=== PATIENT | female | born 1995 | race Caucasian/White ===

== ENCOUNTER 2017-11-02 08:52 | Emergency (ER) | payer BC ==
[2017-11-02 08:59] VITALS: BMI 30.7
--- NOTE | 2017-11-02 09:11 | PDOC ---
History of Present Illness - General Chief Complaint: Chest Pain Stated Complaint: CHEST PAIN Time Seen by Provider: 11/02/17 09:03 - History of Present Illness Initial Comments: 11/02/17 10:14 21 year old female with a PMH of gastric sleeve presents to ED c/o acute onset of chest pain. Patient states the pain started @ 3 a.m. this morning and woke her from sleep. Pain is substernal, "punching" 8/10 and radiates to her back B/ L. Endorses dyspnea, no nausea/palpitations/lightheadedness. Pain exacerbated by supine position, better with sitting. Patient denies any previous h/o such pain. Denies any recent trauma or recent travel. Patient's mother @ bedside notes family cardiac history including maternal CAD (s/p stents) and maternal uncle h/o CA @ age 33 prompting visit to the ED. At presentation patient SpO2 100% on RA, BP 129/84. PMD: [facility] Surgical: Gastric sleeve (November 2017) Social: denies cigarettes, denies alcohol, denies recreational drugs Past History - Past Medical History Allergies/Adverse Reactions: Allergies Allergy/AdvReac Type Severity Reaction Status Date / Time No Known Allergies Allergy Verified 11/02/17 08:56 Home Medications: Ambulatory Orders Cholecalciferol (Vitamin D3) [Vitamin D3 -] 1,000 unit PO DAILY 11/02/17 Multivitamins [Tab-A-Vit -] 1 tab PO DAILY 11/02/17 Norethindrone AC-Eth Estradiol [Microgestin 21 1-20 Tablet] 1 each PO DAILY 07/10 COPD: No - Surgical History Abdominal Surgery: Yes (bariatric sx 2017 [facility]) - Suicide/Smoking/Psychosocial Hx Smoking History: Never smoked Have you smoked in the past 12 months: No Information on smoking cessation initiated: No Hx Alcohol Use: No Drug/Substance Use Hx: No Substance Use Type: None Review of Systems - Review of Systems Constitutional: No: Chills, Fever HEENTM: No: Recent change in vision Respiratory: Yes: Shortness of Breath. No: Orthopnea Cardiac (ROS): Yes: Chest Pain. No: Lightheadedness, Palpitations, Syncope ABD/GI: No: Constipated, Diarrhea, Nausea, Vomiting : No: Burning, Dysuria *Physical Exam - Vital Signs Last Vital Signs Temp Pulse Resp BP Pulse Ox 98.2 F 75 18 139/75 100 11/02/17 08:56 11/02/17 08:56 11/02/17 08:56 11/02/17 08:56 11/02/17 08:56 - Physical Exam Comments: 11/02/17 17:49 GENERAL: Awake, alert, and fully oriented, in no acute distress HEAD: No signs of trauma EYES: PERRLA, EOMI, sclera anicteric, conjunctiva clear ENT: Auricles normal inspection, hearing grossly normal, nares patent, oropharynx clear without exudates. Moist mucosa NECK: Nontender, no stepoffs, Normal ROM, supple, no lymphadenopathy, JVD, or masses LUNGS: Breath sounds equal, clear to auscultation bilaterally. No wheezes, and no crackles HEART: Regular rate and rhythm, normal S1 and S2, no murmurs, rubs or gallops ABDOMEN: Soft, nontender, normoactive bowel sounds. No guarding, no rebound. No masses EXTREMITIES: Normal range of motion, no edema. No clubbing or cyanosis. No cords, erythema, or tenderness NEUROLOGICAL: Cranial nerves II through XII intact. 5/5 strength and sensation in all extremities, Normal speech, normal gait, normal cerebellar function SKIN: Warm, Dry, normal turgor, no rashes or lesions noted. ED Treatment Course - LABORATORY CBC & Chemistry Diagram: 11/02/17 09:55 11/02/17 09:55 Medical Decision Making - Medical Decision Making 11/02/17 09:48 21 year old female presents with acute onset of chest pain; Physical exam notable for reproducible substernal chest pain as well as epigastric TTP. Low clinical suspicion for ACS given reproducibility, more likely musculoskeletal. Will obtain basic labs to rule out active infection including possible cholecystitis, early appendicitis. GI cocktail for pain. Reassess. 11/02/17 11:18 EKG NSR HR 67, no deviations, normal axis, no TWI/KARMEN/STD, poor R wave progression -- no signs of acute ischemia on ECG. 11/02/17 11:30 CBC shows no leukocytosis, Urine negative, Troponin (-) x1. 11/02/17 11:34 Patient continues to c/o pain -- pain continues to be reproducible. Remains hemodynamically stable Will give Toradol. Reassess. 11/02/17 12:38 Patient's pain completely resolved with NSAID. Relief of pain with NSAID + negative Troponin, non-ischemic EKG. At this time patient has been evaluated for 3+ hours with complete resolution of chest pain. Suspect musculoskeletal etiology. Will discharge home with return precautions and PMD follow-up. I discussed the physical exam findings, ancillary test results and final diagnoses with the patient. I answered all of the patient's questions. The patient was satisfied with the care received and felt comfortable with the discharge plan and treatment plan. The patient will return to the Emergency Department with any new, persistent or worsening symptoms. *DC/Admit/Observation/Transfer Diagnosis at time of Disposition: Chest pain - Discharge Dispostion Disposition: HOME Condition at time of disposition: Good - Referrals - Patient Instructions Printed Discharge Instructions: DI for Atypical Chest Pain Additional Instructions: You were evaluated today for chest pain. Your labs and chest xray showed no concerning findings. Please follow up with your Primary Care Doctor in the next 2-3 days. Return to the Emergency Department for any new/worsening/concerning symptoms. - Post Discharge Activity Forms/Work/School Notes: Back to Work
--- NOTE | 2017-11-02 09:37 | PDOC ---
Attending Attestation - Resident Resident Name: Sarahy Ken - ED Attending Attestation I have performed the following: I have examined & evaluated the patient, The case was reviewed & discussed with the resident, I agree w/resident's findings & plan, Exceptions are as noted - HPI HPI: 11/02/17 09:47 21y F hx of gastric bypass 1 yr ago presents with complaint of chest pain since last night. Pt states she was completely fine last night and yesterday utntil about 3am, when she started to fee a sharp/severe mid lower chest pain that radiates up to her shoulders and to the upper back, lasted ~1.5 hrs after she took a motrin it completely resolved and recurred this morning when she woke up. She denies ever having this pain in the past before. 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 The pt denies any fever/chills, cough, hemoptysis, vomiting, akhtar, sob, diarrhea, dysuria, hematuria, vaginal complets. - Physicial Exam PE: 11/02/17 09:52 GENERAL: The patient is awake, alert, and fully oriented, Nontoxic - in no acute distress. HEAD: Normocephalic, atraumatic. EYES: extraocular movements intact, sclera anicteric, conjunctiva clear. ENT: Normal voice, Moist mucous membranes. NECK: Normal range of motion, supple LUNGS: Breath sounds equal, clear to auscultation bilaterally. No wheezes, no rhonchi, no rales. HEART: Regular rate and rhythm, normal S1 and S2 without murmur, rub or gallop. ABDOMEN: Soft, nontender, normoactive bowel sounds. No guarding, no rebound. neg murphies. No CVA tenderness EXTREMITIES: Normal range of motion, no edema. MSK: reproducible tenderness to b/l trapezius, and extension of UE reproduces the pain NEUROLOGICAL: No facial assymetry, Normal speech, PSYCH: Normal mood, normal affect. SKIN: Warm, Dry, normal turgor, - Medical Decision Making 11/02/17 09:52 ddx - msk, pancreatitis, gastritis will ck cxr, cbc, cmp, lipase will give gi coctail, tylenol for symptomatic releife will ck UA/uhcg will reassess 11/02/17 11:36 pts labs reviewed unremarkble cxr neg for acute finidings I suspect her pain is msk in nature -w ill give her some toradol and reassess Heart Score/ECG Review - ECG Impressions Comment:: 11/02/17 11:36 Twelve-lead EKG was performed and reviewed by me. There is normal sinus rhythm with a normal rate. Rate of 67 The axis is normal. The intervals are normal. There are no ST or T wave abnormalities.
[2017-11-02] MEDS ORDERED: MAG HYDROX/AL HYDROX/SIMETH -MYLANTA- ORAL SUSPENSION PO ONE (09:47)
[2017-11-02] MEDS ORDERED: ACETAMINOPHEN 325 MG TABLET (FP) PO ONE (09:47)
[2017-11-02] MEDS ORDERED: FAMOTIDINE 20 MG/50 ML IVPB 20 MG in PREMIX 50 IVPB ONE (09:47)
[2017-11-02] MEDS ORDERED: MAG HYDROX/AL HYDROX/SIMETH 30 ML UNIT-DOSE CUP ONE (10:05)
[2017-11-02] MEDS ORDERED: ACETAMINOPHEN 325 MG TABLET (FP) ONE (10:05)
[2017-11-02] MEDS ORDERED: FAMOTIDINE 20 MG/50 ML IVPB 20 MG/50 ML MG IVPB ONE (10:05)
[2017-11-02 10:21] LABS: BASO % 0.4 % (0-2.0); EOS % 0.5 % (0-4.5); HEMATOCRIT 39.4 % (32.4-45.2); HEMOGLOBIN 12.8 GM/dL (10.7-15.3); LYMPH % 26.6 % (8-40); MCH 26.1 pg (25.7-33.7); MCHC 32.4 g/dl (32.0-36.0); MEAN CELL VOLUME 80.4 fl (80-96); MEAN PLT VOLUME 8.6 fl (7.5-11.1); MONO % 5.2 % (3.8-10.2); NEUT % 67.3 % (42.8-82.8); PLATELET COUNT 220 K/MM3 (134-434); RDW 14.1 % (11.6-15.6); WHITE BLOOD COUNT 6.1 K/mm3 (4.0-10.0)
[2017-11-02 10:30] LABS: ALBUMIN 3.3 g/dl (3.4-5.0); ALK PHOS 80 U/L (45-117); ANION GAP 6 (8-16); BILIRUBIN,TOTAL 0.3 mg/dL (0.2-1.0); BLOOD UREA NITROGEN 12 mg/dL (7-18); CALCIUM 9.1 mg/dL (8.5-10.1); CHLORIDE 106 mmol/L (98-107); CO2 27 mmol/L (21-32); CREATININE 0.6 mg/dL (0.55-1.02); GLUCOSE,RANDOM 75 mg/dL (74-106); LIPASE 120 U/L (73-393); POTASSIUM 4.3 mmol/L (3.5-5.1); SGOT/AST 23 U/L (15-37); SGPT/ALT 30 U/L (12-78); SODIUM 139 mmol/L (136-145); TOT PROT 6.9 g/dl (6.4-8.2)
[2017-11-02 10:36] LABS: URINE APPEARANCE CLEAR; URINE BILIRUBIN NEGATIVE (<2.0 mg/dL); URINE BLOOD NEGATIVE (NEGATIVE); URINE COLOR YELLOW; URINE GLUCOSE (UA) NEGATIVE (NEGATIVE); URINE KETONE NEGATIVE (NEGATIVE); URINE LEUK ESTERASE NEGATIVE (NEGATIVE); URINE NITRITE NEGATIVE (NEGATIVE); URINE PROTEIN NEGATIVE (NEGATIVE)
[2017-11-02 10:37] LABS: HCG,QUALITATIVE URINE NEGATIVE
[2017-11-02] MEDS ORDERED: KETOROLAC TROMETHAMINE 30 MG/1 ML VIAL IVPUSH ONE (11:34)
[2017-11-02] MEDS ORDERED: KETOROLAC TROMETHAMINE 30 MG/1 ML VIAL ONE (11:59)
[2017-11-02 12:59] VITALS: BP 128/76; PULSE 68; TEMP 98.1
--- NOTE | 2017-11-02 13:29 | EKG ---
Test Reason : Blood Pressure : / mmHG Vent. Rate : 067 BPM Atrial Rate : 067 BPM P-R Int : 146 ms QRS Dur : 080 ms QT Int : 412 ms P-R-T Axes : 035 028 032 degrees QTc Int : 435 ms NORMAL SINUS RHYTHM NORMAL ECG NO PREVIOUS ECGS AVAILABLE Confirmed by MAEGAN DE LA FUENTE MD ([id number]) on 11/02/2017 1:28:41 PM Referred By: Confirmed By:MAEGAN DE LA FUENTE MD
== END 2017-11-02 12:59 | disposition home or self-care (01) ==
LOC: JER 08:52
PROC: 3E033GC Introduction of Other Therapeutic Substance into Peripheral Vein, Percutaneous Approach (ICD-10-PCS; principal; 2017-11-02)
PROC: 3E0333Z Introduction of Anti-inflammatory into Peripheral Vein, Percutaneous Approach (ICD-10-PCS; 2017-11-02)
DX: R07.89 Other chest pain (principal)
CPT/HCPCS: 36415; 71046-TC-FY; 80053; 81003; 82550; 83690; 84484; 84703; 85025; 87077; 87086; 93005; 93010; 99283-25

== ENCOUNTER 2019-01-04 00:21 | Emergency (ER) | payer BC | END 2019-01-04 02:46 | disposition home or self-care (01) | LOC: FER 00:21 ==

== ENCOUNTER 2019-01-10 17:10 | Emergency (ER) | payer BC ==
[2019-01-10 17:50] VITALS: BP 115/61; PULSE 64; TEMP 97.8; BMI 27.3
--- NOTE | 2019-01-10 17:53 | PDOC ---
Rapid Medical Evaluation Chief Complaint: Pain Time Seen by Provider: 01/10/19 17:48 Medical Evaluation: Allergies Allergy/AdvReac Type Severity Reaction Status Date / Time No Known Allergies Allergy Verified 11/02/17 08:56 01/10/19 17:48 I have performed a brief in-person evaluation of this patient. The patient presents with a chief complaint of: upper abd pain x 1 week, seen here then PMD last week Pertinent physical exam findings: + US showed Gallstones I have ordered the following: Labs/ US Gallbladder The patient will proceed to the ED for further evaluation. Discharge Disposition - Diagnosis Biliary colic - Referrals - Patient Instructions - Post Discharge Activity
== END 2019-01-10 19:57 | disposition left against medical advice (07) ==
LOC: JER 17:10
DX: K80.20 Calculus of gallbladder without cholecystitis without obstruction (principal)
CPT/HCPCS: 99281-25

== ENCOUNTER 2019-05-23 07:27 | Emergency (ER) | payer BC ==
[2019-05-23 07:34] VITALS: BMI 30.7
--- NOTE | 2019-05-23 07:58 | PDOC ---
History of Present Illness - General Chief Complaint: Vaginal Bleeding Stated Complaint: 9WKS BLEEDING History Source: Patient Exam Limitations: No Limitations - History of Present Illness Initial Comments: 05/23/19 08:24 23 yo F 9 weeks GA based on US (followed by Dr. Pal) with a hx of gastric bypass surgery and cholecystectomy presents to the emergency department with vaginal bleeding that occurred this morning. Per the patient, she states it occurred at approximately 6 am today when she wiped after urinating. She noticed burgundy color red streaks on her tissue paper. She states concurrently she was having abdominal pain as well, but described as mild cramping like without radiation without aggravating or relieving factors. Denies the following : recent travel and sick contacts, fever, chills, SOB, chest pain, lightheadedness, dysuria, hematuria, diarrhea, hematochezia, leg pain/swelling, melena, and back pain. Endorses urinary frequency. 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 Allergies: NKDA Social: Denies tobacco, alcohol, and substance abuse. Past History - Past Medical History Allergies/Adverse Reactions: Allergies Allergy/AdvReac Type Severity Reaction Status Date / Time No Known Allergies Allergy Verified 01/10/19 17:50 Home Medications: Ambulatory Orders Cephalexin Monohydrate [Keflex -] 500 mg PO BID #14 capsule 05/23/19 COPD: No - Surgical History Abdominal Surgery: Yes (bariatric sx 2017 [place]) - Immunization History Immunization Up to Date: No - Psycho Social/Smoking Cessation Hx Smoking History: Never smoked Have you smoked in the past 12 months: No Information on smoking cessation initiated: No Hx Alcohol Use: No Drug/Substance Use Hx: No Substance Use Type: None Review of Systems - Review of Systems Able to Perform ROS?: Yes Is the patient limited Kiswahili proficient: No Constitutional: No: Chills, Diaphoresis, Fever, Weakness HEENTM: No: Eye Pain, Ear Pain, Nose Pain, Throat Pain, Mouth Pain Respiratory: No: Cough, Shortness of Breath, Hemoptysis Cardiac (ROS): No: Chest Pain, Lightheadedness, Palpitations, Syncope, Chest Tightness ABD/GI: Yes: Abdominal cramping. No: Constipated, Diarrhea, Nausea, Rectal Bleeding, Vomiting, Tarry Stools : Yes: Frequency. No: Burning, Dysuria, Hematuria, Incontinence Musculoskeletal: No: Back Pain, Joint Pain, Neck Pain Integumentary: No: Bruising, Erythema, Rash Neurological: No: Headache, Numbness, Tingling, Tremors Psychiatric: No: Change in Appetite Endocrine: No: Unexplained Weight Gain Hematologic/Lymphatic: No: Anemia *Physical Exam - Vital Signs Last Vital Signs Temp Pulse Resp BP Pulse Ox 98.2 F 83 18 125/71 98 05/23/19 07:30 05/23/19 07:30 05/23/19 07:30 05/23/19 07:30 05/23/19 07:30 - Physical Exam General Appearance: Yes: Nourished, Appropriately Dressed. No: Apparent Distress, Intoxicated HEENT: positive: EOMI, DINORAH, Normal Voice, Symmetrical, Pharynx Normal, Hearing Grossly Normal. negative: Pale Conjunctivae, Scleral Icterus (R), Scleral Icterus (L), Muffled/Hoarse voice, Pharyngeal Erythema, Tonsillar Exudate, Tonsillar Erythema, Nasal Congestion, Rhinorrhea, Sinus Tenderness, Excessive drooling Neck: positive: Trachea midline, Supple. negative: Tender, Lymphadenopathy (R) , Lymphadenopathy (L), Tender lateral, Tender midline Respiratory/Chest: positive: Lungs Clear, Normal Breath Sounds. negative: Chest Tender, Respiratory Distress, Accessory Muscle Use, Crackles, Rales Cardiovascular: positive: Regular Rhythm, Regular Rate, S1, S2. negative: Systolic Murmur Female Pelvic Exam: positive: normal external exam, cervical os closed, normal adnexa, other (no discharge or bleeding from os. chandler old clot in the vaginal vault small). negative: CMT, adnexal tenderness Gastrointestinal/Abdominal: positive: Normal Bowel Sounds, Flat, Soft. negative : Tender, Distended, Guarding, Rebound Lymphatic: negative: Adenopathy Musculoskeletal: positive: Normal Inspection. negative: CVA Tenderness, Vertebral Tenderness Extremity: positive: Normal Capillary Refill, Normal Inspection, Normal Range of Motion. negative: Tender, Swelling, Calf Tenderness Integumentary: positive: Normal Color, Dry, Warm. 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 Pal) with a hx of gastric bypass surgery and cholecystectomy presents to the emergency department with vaginal bleeding that occurred this morning. Initial vitals: Initial Vital Signs Temp Pulse Resp BP Pulse Ox 98.2 F 83 18 125/71 98 05/23/19 07:30 05/23/19 07:30 05/23/19 07:30 05/23/19 07:30 05/23/19 07:30 Work up: ddx: threatened vs incomplete vs inevitable miscarriage. In addition, she complains of urinary frequency but without pain. Will obtain cbc, cmp, bhcg, UA, urine culture, and TVUS Laboratory Tests 05/23/19 05/23/19 05/23/19 08:07 08:07 08:07 WBC 6.2 RBC 4.64 Hgb 12.2 Hct 37.3 MCV 80.5 MCH 26.3 MCHC 32.7 RDW 13.8 Plt Count 267 MPV 7.8 Absolute Neuts (auto) 4.3 Neutrophils % 68.1 Lymphocytes % 24.6 D Monocytes % 6.5 Eosinophils % 0.6 D Basophils % 0.2 Nucleated RBC % 0 Sodium 138 Potassium 4.0 Chloride 106 Carbon Dioxide 23 Anion Gap 8 BUN 9.0 Creatinine 0.5 L Est GFR (CKD-EPI)AfAm 157.00 Est GFR (CKD-EPI)NonAf 135.46 Random Glucose 80 Calcium 8.8 Total Bilirubin 0.4 AST 11 L ALT 26 Alkaline Phosphatase 71 Total Protein 6.8 Albumin 3.4 Beta HCG, Quant 96541.8 Blood Type B POSITIVE Antibody Screen Negative 05/23/19 10:49 Discharge - Discharge Information Problems reviewed: Yes Clinical Impression/Diagnosis: UTI (urinary tract infection), Vaginal bleeding, Condition: Good Disposition: HOME - Admission No - Additional Discharge Information Prescriptions: Cephalexin Monohydrate [Keflex -] 500 mg PO BID #14 capsule - Follow up/Referral Referrals: Tawnya Boyce MD [Staff Physician] - - Patient Discharge Instructions Patient Printed Discharge Instructions: Diet, DI for Urinary Tract Infection (UTI), DI for -- Discomforts and Remedies, DI for Vaginal Bleeding During Additional Instructions: You were seen in the emergency department for the evaluation of your vaginal bleeding. please follow up with your obgyn doctor or the one referred to you in 48 hours for a repeat bhcg. this is very important. please return to the emergency department for worsening symptoms or new concerning symptoms. Please take the antibiotics as prescribed. Thank you. - Post Discharge Activity Work/Back to School Note: Back to Work
[2019-05-23] MEDS ORDERED: SODIUM CHLORIDE 1,000 ML IV STA (08:14)
[2019-05-23] MEDS ORDERED: ACETAMINOPHEN 1000 MG/100 ML VIAL (NON FORMULARY) IVPB ONE (08:14)
--- NOTE | 2019-05-23 08:21 | PDOC ---
Attending Attestation - Resident Resident Name: Jos Gold - ED Attending Attestation I have performed the following: I have examined & evaluated the patient, The case was reviewed & discussed with the resident, I agree w/resident's findings & plan, Exceptions are as noted - HPI HPI: 05/23/19 08:19 Agree with resident exam - Physicial Exam PE: 05/23/19 11:15 agree with resident exam - Medical Decision Making 05/23/19 11:15 23-year-old female G1, P0 currently with twins, unclear dates due to variation in outpatient ultrasound presents the emergency department with one episode of vaginal bleeding when wiping this morning and mild, resolved suprapubic cramping. Vitals within normal limits. Exam with no abdominal tenderness to palpation, closed os, and no active bleeding or pooling on speculum exam. Labs within normal limits. Ultrasound with viable twin Impression is threatened . UA is pending. UA with bacturia, will treat with keflex All results explained to pt, no further bleeding in ED She is clinically stable for DC home with outpt OB f/u I discussed the physical exam findings, ancillary test results and final diagnoses with the patient. I answered all of the patient's questions. The patient was satisfied with the care received and felt comfortable with the discharge plan and treatment plan. The patient will call their primary care physician within 24 hours to arrange follow-up and will return to the Emergency Department with any new, persistent or worsening symptoms.
[2019-05-23 08:33] LABS: BASO % 0.2 % (0-2.0); EOS % 0.6 % (0-4.5); HEMATOCRIT 37.3 % (32.4-45.2); HEMOGLOBIN 12.2 GM/dL (10.7-15.3); LYMPH % 24.6 % (8-40); MCH 26.3 pg (25.7-33.7); MCHC 32.7 g/dl (32.0-36.0); MEAN CELL VOLUME 80.5 fl (80-96); MEAN PLT VOLUME 7.8 fl (7.5-11.1); MONO % 6.5 % (3.8-10.2); NEUT % 68.1 % (42.8-82.8); PLATELET COUNT 267 K/MM3 (134-434); RBC 4.64 M/mm3 (3.60-5.2); RDW 13.8 % (11.6-15.6); WHITE BLOOD COUNT 6.2 K/mm3 (4.0-10.0)
[2019-05-23] MEDS ORDERED: ACETAMINOPHEN INJECTION 100 ML IVPB ONE ×2 (08:35→08:41)
[2019-05-23 08:55] LABS: ALBUMIN 3.4 g/dl (3.4-5.0); BILIRUBIN,TOTAL 0.4 mg/dL (0.2-1); CALCIUM 8.8 mg/dL (8.5-10.1); CREATININE 0.5 mg/dL (0.55-1.3); TOT PROT 6.8 g/dl (6.4-8.2)
[2019-05-23] MEDS ORDERED: ONDANSETRON 4 MG/2 ML VIAL IVPUSH ONE (10:59)
[2019-05-23] MEDS ORDERED: ONDANSETRON 4 MG/2 ML VIAL ONE (11:19)
[2019-05-23 11:47] LABS: EPI CELLS 8.9 /HPF (0-5/HPF); HYALINE CASTS 5 /lpf (0-8); PH,URINE 7.5 (5.0-8.0); URINE APPEARANCE CLEAR; URINE BACTERIA 222.5 /hpf (NEGATIVE); URINE BILIRUBIN NEGATIVE (NEGATIVE); URINE COLOR YELLOW; URINE GLUCOSE (UA) NEGATIVE (NEGATIVE); URINE KETONE NEGATIVE (NEGATIVE); URINE LEUK ESTERASE TRACE (NEGATIVE); URINE NITRITE NEGATIVE (NEGATIVE); URINE PROTEIN NEGATIVE (NEGATIVE); URINE RBC 2 /hpf (0-4); URINE WBC 1 /hpf (0-5)
[2019-05-23] MEDS ORDERED: CEPHALEXIN MONOHYDRATE 500 MG CAPSULE (UD) PO ONE (11:59)
[2019-05-23 12:15] VITALS: BP 120/73; PULSE 68; TEMP 97.8
[2019-05-23] MEDS ORDERED: CEPHALEXIN MONOHYDRATE 500 MG CAPSULE (UD) ONE (12:16)
== END 2019-05-23 12:22 | disposition home or self-care (01) ==
LOC: JER 07:27
PROC: 3E033NZ Introduction of Analgesics, Hypnotics, Sedatives into Peripheral Vein, Percutaneous Approach (ICD-10-PCS; principal; 2019-05-23)
PROC: 3E033GC Introduction of Other Therapeutic Substance into Peripheral Vein, Percutaneous Approach (ICD-10-PCS; 2019-05-23)
DX: O26.891 Other specified pregnancy related conditions, first trimester (principal); Z3A.09 9 weeks gestation of pregnancy; N93.9 Abnormal uterine and vaginal bleeding, unspecified; N39.0 Urinary tract infection, site not specified
CPT/HCPCS: 36415; 76810-TC; 80053; 81003; 84702; 85025; 86850; 86900; 86901; 87086; 99282-25; J0131; J7030

== ENCOUNTER 2021-05-28 04:56 | Emergency (ER) | payer SELFPAY ==
[2021-05-28 05:37] VITALS: BP 132/78; PULSE 77; TEMP 98.7; BMI 34.0
[2021-05-28] MEDS ORDERED: ONDANSETRON 4 MG/2 ML VIAL IVPUSH ONE (05:53)
[2021-05-28] MEDS ORDERED: ACETAMINOPHEN 325 MG TABLET (FP) PO ONE (05:54)
[2021-05-28] MEDS ORDERED: ONDANSETRON 4 MG/2 ML VIAL ONE (06:15)
[2021-05-28] MEDS ORDERED: ACETAMINOPHEN 325 MG TABLET (FP) ONE (06:15)
[2021-05-28 06:30] LABS: ALBUMIN 3.1 g/dl (3.4-5.0); BLOOD UREA NITROGEN 12.7 mg/dL (7-18); CALCIUM 9.2 mg/dL (8.5-10.1); EPI CELLS 3 /uL (0-25.1); HYALINE CASTS 10 /uL (0-3.1); URINE APPEARANCE CLEAR; URINE BACTERIA 811 /uL (0-1359); URINE BILIRUBIN NEGATIVE (NEGATIVE); URINE COLOR YELLOW; URINE GLUCOSE (UA) NEGATIVE (NEGATIVE); URINE KETONE NEGATIVE (NEGATIVE); URINE LEUK ESTERASE 2+ (NEGATIVE); URINE NITRITE NEGATIVE (NEGATIVE); URINE PROTEIN TRACE (NEGATIVE); URINE RBC 68 /uL (0-23.9); URINE UROBILINOGEN 0.2 mg/dL (0.2-1.0); URINE WBC 441 /uL (0-25.8)
[2021-05-28 06:33] LABS: BASO % 1.5 % (0-2.0); CREATININE 0.7 mg/dL (0.55-1.3); EOS % 0.6 % (0-4.5); HEMATOCRIT 38.5 % (32.4-45.2); HEMOGLOBIN 12.7 GM/dL (10.7-15.3); LYMPH % 10.9 % (8-40); MCH 25.2 pg (25.7-33.7); MCHC 33.1 g/dl (32.0-36.0); MEAN CELL VOLUME 76.1 fl (80-96); MEAN PLT VOLUME 7.6 fl (7.5-11.1); MONO % 4.8 % (3.8-10.2); NEUT % 82.2 % (42.8-82.8); PLATELET COUNT 338 10^3/uL (134-434); RBC 5.05 M/mm3 (3.60-5.2); WHITE BLOOD COUNT 9.6 K/mm3 (4.0-10.0)
[2021-05-28 06:36] LABS: BILIRUBIN,TOTAL 0.3 mg/dL (0.2-1); TOT PROT 7.4 g/dl (6.4-8.2)
[2021-05-28] MEDS ORDERED: CIPROFLOXACIN 500 MG TABLET (RESTRICTED TO ID) PO ONE (06:43)
[2021-05-28 06:48] LABS: HCG,QUALITATIVE URINE Negative
== END 2021-05-28 07:10 | disposition home or self-care (01) ==
LOC: JER 04:56
PROC: 3E033GC Introduction of Other Therapeutic Substance into Peripheral Vein, Percutaneous Approach (ICD-10-PCS; principal; 2021-05-28)
DX: N10 Acute pyelonephritis (principal)
CPT/HCPCS: 36415; 80053; 81003; 84703; 85025; 87086; 87186; 99284-25

== ENCOUNTER 2021-05-30 15:25 | Inpatient (IN) | payer SELFPAY ==
[2021-05-30] MEDS ORDERED: SODIUM CHLORIDE 1,000 ML IV STA (17:12)
[2021-05-30] MEDS ORDERED: ACETAMINOPHEN 1000 MG/100 ML VIAL IVPB ONE (17:57)
[2021-05-30] MEDS ORDERED: ONDANSETRON 4 MG/2 ML VIAL IVPUSH ONE (17:57)
[2021-05-30] MEDS ORDERED: ACETAMINOPHEN INJECTION 100 ML IVPB ONE (18:35)
[2021-05-30] MEDS ORDERED: PHENAZOPYRIDINE HCL 100 MG TABLET (FP) ONE (18:36)
[2021-05-30] MEDS ORDERED: ONDANSETRON 4 MG/2 ML VIAL ONE (18:36)
[2021-05-30 18:44] LABS: EPI CELLS 7 /uL (0-25.1); HYALINE CASTS 1 /uL (0-3.1); URINE APPEARANCE CLEAR; URINE BACTERIA 274 /uL (0-1359); URINE BILIRUBIN NEGATIVE (NEGATIVE); URINE COLOR YELLOW; URINE GLUCOSE (UA) NEGATIVE (NEGATIVE); URINE KETONE NEGATIVE (NEGATIVE); URINE LEUK ESTERASE TRACE (NEGATIVE); URINE NITRITE NEGATIVE (NEGATIVE); URINE PROTEIN TRACE (NEGATIVE); URINE RBC 16 /uL (0-23.9); URINE UROBILINOGEN 0.2 mg/dL (0.2-1.0); URINE WBC 26 /uL (0-25.8)
[2021-05-30] MEDS: PHENAZOPYRIDINE HCL 100 MG TABLET (FP) PO SCH (18:56)
[2021-05-30 19:11] LABS: BASO % 0.3 % (0-2.0); EOS % 1.1 % (0-4.5); HEMOGLOBIN 12.7 GM/dL (10.7-15.3); LYMPH % 21.1 % (8-40); MCHC 32.6 g/dl (32.0-36.0); MEAN CELL VOLUME 76.6 fl (80-96); MEAN PLT VOLUME 7.7 fl (7.5-11.1); MONO % 5.9 % (3.8-10.2); NEUT % 71.6 % (42.8-82.8); PLATELET COUNT 353 10^3/uL (134-434); RDW 14.4 % (11.6-15.6); WHITE BLOOD COUNT 10.8 K/mm3 (4.0-10.0)
[2021-05-30] MEDS ORDERED: VANCOMYCIN 1,000 MG in DEXTROSE 5%-WATER - 250 ML IVPB ONE (19:25)
[2021-05-30 19:30] LABS: CALCIUM 9.1 mg/dL (8.5-10.1)
[2021-05-30 19:31] LABS: ALBUMIN 3.1 g/dl (3.4-5.0)
[2021-05-30 19:34] LABS: CREATININE 0.7 mg/dL (0.55-1.3)
[2021-05-30 19:35] LABS: BILIRUBIN,TOTAL 0.2 mg/dL (0.2-1)
[2021-05-30 19:36] LABS: TOT PROT 7.5 g/dl (6.4-8.2)
[2021-05-30] MEDS ORDERED: VANCOMYCIN 1 GRAM (PRE-DOCKED) 1,000 MG/250 ML BAG IVPB ONE (21:18)
[2021-05-31] MEDS ORDERED: VANCOMYCIN 1 GM in D5W (PRE-DOCKED) 1,000 MG/250 ML IVPB SCH ×2 (09:00→10:00)
[2021-05-31] MEDS ORDERED: POLYETHYLENE GLYCOL 3350 119 GM BTL PO SCH (10:00)
[2021-05-31 12:03] LABS: HEMATOCRIT 34.8 % (32.4-45.2); HEMOGLOBIN 11.5 GM/dL (10.7-15.3); MCH 25.1 pg (25.7-33.7); MCHC 33.1 g/dl (32.0-36.0); MEAN CELL VOLUME 75.8 fl (80-96); MEAN PLT VOLUME 7.2 fl (7.5-11.1); PLATELET COUNT 304 10^3/uL (134-434); RBC 4.59 M/mm3 (3.60-5.2); RDW 14.4 % (11.6-15.6); WHITE BLOOD COUNT 6.6 K/mm3 (4.0-10.0)
[2021-05-31 12:25] LABS: CALCIUM 8.5 mg/dL (8.5-10.1)
[2021-05-31 12:26] LABS: ALBUMIN 2.6 g/dl (3.4-5.0); BLOOD UREA NITROGEN 9.2 mg/dL (7-18); MAGNESIUM 2.7 mg/dL (1.8-2.4)
[2021-05-31 12:30] LABS: BILIRUBIN,TOTAL 0.3 mg/dL (0.2-1); CREATININE 0.6 mg/dL (0.55-1.3); PHOSPHOROUS 3.2 mg/dL (2.5-4.9); TOT PROT 6.5 g/dl (6.4-8.2)
[2021-05-31] MEDS ORDERED: PHENAZOPYRIDINE HCL 100 MG TABLET (FP) ONE (12:36)
[2021-05-31] MEDS ORDERED: VANCOMYCIN 1 GRAM (PRE-DOCKED) 1,000 MG/250 ML BAG IVPB ONE (12:36)
[2021-05-31] MEDS: ENOXAPARIN NA (PORCINE) 40 MG/0.4 ML DISP.SYRIN SQ SCH (12:47)
[2021-05-31] MEDS: PHENAZOPYRIDINE HCL 100 MG TABLET (FP) PO SCH ×3 (12:47→18:11)
[2021-05-31 17:01] VITALS: BMI 34.5
[2021-05-31] MEDS ORDERED: ACETAMINOPHEN 325 MG TABLET (FP) PO ONE (20:49)
[2021-05-31] MEDS: POLYETHYLENE GLYCOL (HEALTHYLAX) 3350 17 GM PACKET PO SCH (21:05)
[2021-05-31] MEDS ORDERED: VANCOMYCIN 1 GRAM (PRE-DOCKED) 1,000 MG/250 ML BAG IVPB SCH (22:00)
[2021-06-01] MEDS: VANCOMYCIN 1 GRAM (PRE-DOCKED) 1,000 MG/250 ML BAG IVPB SCH ×2 (00:35→11:55)
[2021-06-01 08:39] LABS: MCH 25.1 pg (25.7-33.7); MCHC 32.4 g/dl (32.0-36.0); MEAN CELL VOLUME 77.5 fl (80-96); MEAN PLT VOLUME 7.7 fl (7.5-11.1); PLATELET COUNT 330 10^3/uL (134-434); RBC 4.77 M/mm3 (3.60-5.2); RDW 14.7 % (11.6-15.6); WHITE BLOOD COUNT 6.6 K/mm3 (4.0-10.0)
[2021-06-01 09:04] LABS: CALCIUM 8.6 mg/dL (8.5-10.1)
[2021-06-01 09:05] LABS: ALBUMIN 2.8 g/dl (3.4-5.0); BLOOD UREA NITROGEN 9.1 mg/dL (7-18); MAGNESIUM 2.4 mg/dL (1.8-2.4)
[2021-06-01 09:08] LABS: CREATININE 0.7 mg/dL (0.55-1.3); PHOSPHOROUS 2.7 mg/dL (2.5-4.9)
[2021-06-01 09:09] LABS: BILIRUBIN,TOTAL 0.3 mg/dL (0.2-1)
[2021-06-01] MEDS ORDERED: PT OWN MED DRAWER 7, Y5N ONE ×2 (09:11→12:40)
[2021-06-01] MEDS: PHENAZOPYRIDINE HCL 100 MG TABLET (FP) PO SCH ×2 (09:13→12:42)
[2021-06-01] MEDS: ENOXAPARIN NA (PORCINE) 40 MG/0.4 ML DISP.SYRIN SQ SCH (09:16)
[2021-06-01] MEDS: POLYETHYLENE GLYCOL (HEALTHYLAX) 3350 17 GM PACKET PO SCH (09:16)
[2021-06-01 14:36] VITALS: BP 121/59; PULSE 68; TEMP 98.4
== END 2021-06-01 15:50 | disposition home or self-care (01) | DRG 463 ==
LOC: JER 15:25 → JERBED 23:17 → J6S 05-31 15:31
PROVIDERS: ADMIT Internal Medicine; ATTEND Internal Medicine
DX: N39.0 Urinary tract infection, site not specified (principal); E66.9 Obesity, unspecified; Z68.34 Body mass index [BMI] 34.0-34.9, adult; N85.8 Other specified noninflammatory disorders of uterus; Z98.84 Bariatric surgery status
CPT/HCPCS: 36415; 74176-TC; 80053; 81003; 83735; 84100; 84703; 85025; 85027; 87040; 87086; 87491; 87591; 99285-25; C9803; J0131; U0003; U0005

== ENCOUNTER 2022-09-21 19:14 | Emergency (ER) | payer BC ==
[2022-09-21 19:21] VITALS: BP 122/74; PULSE 68; RESP 18; TEMP 98.4; BMI 29.0
[2022-09-21] MEDS ORDERED: IBUPROFEN 600 MG TABLET (FP) PO ONE (19:37)
[2022-09-21] MEDS ORDERED: ACETAMINOPHEN 325 MG TABLET (FP) PO ONE (19:40)
[2022-09-21] MEDS ORDERED: ACETAMINOPHEN 325 MG TABLET (FP) ONE (19:41)
== END 2022-09-21 22:11 | disposition home or self-care (01) ==
LOC: FER 19:14
DX: S09.90XA Unspecified injury of head, initial encounter (principal); S30.0XXA Contusion of lower back and pelvis, initial encounter; S16.1XXA Strain of muscle, fascia and tendon at neck level, initial encounter; W10.9XXA Fall (on) (from) unspecified stairs and steps, initial encounter
CPT/HCPCS: 70450-TC; 71046-TC-FY; 72125-TC; 72170-TC-FY; 72220-TC-FY; 81025; 99285-25

== ENCOUNTER 2023-09-26 18:26 | Emergency (ER) | payer BC ==
[2023-09-26 18:34] VITALS: RESP 18; BMI 29.0
[2023-09-26 20:19] VITALS: BP 123/80; PULSE 100; TEMP 98.8
== END 2023-09-26 20:19 | disposition home or self-care (01) ==
LOC: FER 18:26
DX: J02.9 Acute pharyngitis, unspecified (principal); R05.9 Cough, unspecified; M79.10 Myalgia, unspecified site; R53.81 Other malaise; B34.9 Viral infection, unspecified; Z20.822 Contact with and (suspected) exposure to COVID-19
CPT/HCPCS: 0241U-QW; 87651; 99283-25

== ENCOUNTER 2024-01-15 06:47 | Emergency (ER) | payer BC, OTHER ==
[2024-01-15 06:57] VITALS: BP 118/76; PULSE 78; RESP 20; TEMP 98.3; BMI 28.1
[2024-01-15] MEDS: SODIUM CHLORIDE 0.9% 500 ML INFUS.BAG IV ONE (08:50)
[2024-01-15 09:19] LABS: EPI CELLS >36 /uL (0-25.1); HYALINE CASTS 4 /uL (0-3.1); URINE APPEARANCE CLEAR; URINE BACTERIA 293 /uL (0-1359); URINE BILIRUBIN 1+ (NEGATIVE); URINE COLOR DK YELLOW; URINE GLUCOSE (UA) NEGATIVE (NEGATIVE); URINE KETONE TRACE (NEGATIVE); URINE LEUK ESTERASE TRACE (NEGATIVE); URINE NITRITE NEGATIVE (NEGATIVE); URINE PROTEIN TRACE (NEGATIVE); URINE RBC 15 /uL (0-23.9); URINE WBC 18 /uL (0-25.8)
[2024-01-15 09:22] LABS: HCG,QUALITATIVE URINE Negative
[2024-01-15 09:26] LABS: HEMATOCRIT 38.6 % (32.4-45.2); HEMOGLOBIN 12.6 GM/dL (10.7-15.3); MCH 25.2 pg (25.7-33.7); MCHC 32.8 g/dl (32.0-36.0); MEAN PLT VOLUME 7.7 fl (7.5-11.1); PLATELET COUNT 217 10^3/uL (134-434); RBC 5.02 M/mm3 (3.60-5.2); RDW 14.2 % (11.6-15.6); WHITE BLOOD COUNT 9.6 K/mm3 (4.0-10.0)
[2024-01-15 09:44] LABS: BLOOD UREA NITROGEN 10.3 mg/dL (7-18); CALCIUM 8.5 mg/dL (8.5-10.1)
[2024-01-15 09:47] LABS: CREATININE 0.6 mg/dL (0.55-1.3)
[2024-01-15 09:49] LABS: BILIRUBIN,TOTAL 0.3 mg/dL (0.2-1); TOT PROT 6.7 g/dl (6.4-8.2)
[2024-01-15] MEDS ORDERED: ACETAMINOPHEN INJECTION 100 ML IVPB ONE (09:57)
[2024-01-15] MEDS ORDERED: METOCLOPRAMIDE HCL INJECTION 10 MG/2 ML VIAL ONE (09:57)
[2024-01-15] MEDS: ACETAMINOPHEN 1000 MG/100 ML BAG IVPB ONE (10:07)
[2024-01-15] MEDS: METOCLOPRAMIDE HCL INJECTION 10 MG/2 ML VIAL IVPUSH ONE (10:07)
[2024-01-15 11:35] LABS: ANISOCYTOSIS 0; MACROCYTOSIS 0
[2024-01-15] MEDS ORDERED: CEFTRIAXONE 1 GM/50 ML BAG ONE (12:47)
[2024-01-15] MEDS: CEFTRIAXONE 1 GM in DEXTROSE 5%-WATER - 100 ML IVPB ONE (12:50)
[2024-01-15] MEDS ORDERED: HYDROCORTISONE SOD SUCCINATE 100 MG/2 ML VIAL ONE (15:44)
[2024-01-15] MEDS: HYDROCORTISONE SOD SUCCINATE 100 MG/2 ML VIAL IVPUSH ONE (15:50)
== END 2024-01-15 22:09 | disposition home or self-care (01) ==
LOC: JER 06:47
PROC: 3E033GC Introduction of Other Therapeutic Substance into Peripheral Vein, Percutaneous Approach (ICD-10-PCS; principal; 2024-01-15)
PROC: 3E033GC Introduction of Other Therapeutic Substance into Peripheral Vein, Percutaneous Approach (ICD-10-PCS; 2024-01-15)
PROC: 3E033GC Introduction of Other Therapeutic Substance into Peripheral Vein, Percutaneous Approach (ICD-10-PCS; 2024-01-15)
PROC: 3E033GC Introduction of Other Therapeutic Substance into Peripheral Vein, Percutaneous Approach (ICD-10-PCS; 2024-01-15)
PROC: 3E033NZ Introduction of Analgesics, Hypnotics, Sedatives into Peripheral Vein, Percutaneous Approach (ICD-10-PCS; 2024-01-15)
DX: R53.1 Weakness (principal); N39.0 Urinary tract infection, site not specified; R74.01 Elevation of levels of liver transaminase levels; R53.83 Other fatigue; R51.9 Headache, unspecified; R42 Dizziness and giddiness; Z20.822 Contact with and (suspected) exposure to COVID-19
CPT/HCPCS: 0241U-QW; 36415; 74177-TC; 76705-TC; 80053; 81003; 84443; 84703; 85025; 87086; 93005; 93010; 99285-25; J0131; Q9967

== ENCOUNTER 2024-01-16 17:29 | Emergency (ER) | payer BC, OTHER ==
[2024-01-16 17:37] VITALS: TEMP 98.4; BMI 28.1
[2024-01-16] MEDS ORDERED: diphenhydrAMINE HCL 25 MG CAPSULE (FP) PO ONE (19:42)
[2024-01-16] MEDS ORDERED: DEXAMETHASONE SOD PHOSPHATE 10 MG/1 ML VIAL ONE (19:43)
[2024-01-16] MEDS ORDERED: FAMOTIDINE 20 MG TABLET ONE (19:43)
[2024-01-16] MEDS: diphenhydrAMINE HCL 25 MG CAPSULE (FP) PO ONE (19:50)
[2024-01-16] MEDS: FAMOTIDINE 20 MG TABLET PO ONE (19:50)
[2024-01-16] MEDS: DEXAMETHASONE SOD PHOSPHATE 10 MG/1 ML VIAL IM ONE (19:50)
[2024-01-16 21:37] VITALS: BP 118/79; PULSE 88; RESP 19
== END 2024-01-16 21:38 | disposition home or self-care (01) ==
LOC: JER 17:29
PROC: 3E023GC Introduction of Other Therapeutic Substance into Muscle, Percutaneous Approach (ICD-10-PCS; principal; 2024-01-16)
DX: L50.0 Allergic urticaria (principal); T50.8X5A Adverse effect of diagnostic agents, initial encounter; X58.XXXA Exposure to other specified factors, initial encounter
CPT/HCPCS: 99284-25; J1100

== ENCOUNTER 2024-12-20 20:18 | Emergency (ER) | payer BC, OTHER ==
[2024-12-20 20:30] VITALS: BP 144/85; PULSE 118; RESP 18; TEMP 101.1; BMI 29.0
[2024-12-20] MEDS ORDERED: ACETAMINOPHEN 500 MG TABLET (FP) ONE (20:31)
[2024-12-20] MEDS: ACETAMINOPHEN 500 MG TABLET (FP) PO ONE (21:05)
== END 2024-12-20 21:11 | disposition home or self-care (01) ==
LOC: FER 20:18
DX: R50.9 Fever, unspecified (principal); R51.9 Headache, unspecified; M79.10 Myalgia, unspecified site; J39.8 Other specified diseases of upper respiratory tract
CPT/HCPCS: 0241U-QW; 99283-25